=== PATIENT | female | born 1935 | race Caucasian/White ===

== ENCOUNTER 2021-05-17 13:43 | Emergency (ER) | payer MEDICARE, MEDICAID ==
[2021-05-17] MEDS ORDERED: Sodium Chloride 0.9% 10 ML Syringe FLUSH PRN (13:58)
--- NOTE | 2021-05-17 14:28 | CR ---
[id number] RAD/RAD Chest PA or AP 1V EXAM: FRONTAL CHEST INDICATION: CONFUSION. COMPARISON: None. DISCUSSION: There is mild cardiomegaly with early central vascular congestion and small bilateral pleural effusions. Superimposed left mid lung and basilar infiltrates are not excluded. Possible hiatus hernia. IMPRESSION: 1. Mild congestive heart failure. Ryan Lopez MD 05/17/21 [id number] Thank you for allowing us to participate in the care of your patient.
[2021-05-17 14:50] LABS: CHLORIDE,CL 98 mmol/L (98-107); SODIUM,NA 130 mmol/L (136-145)
[2021-05-17 14:53] LABS: ANION GAP 8.3 mmol/L (5-15)
--- NOTE | 2021-05-17 16:09 | EDM.PDOC ---
ED HPI GENERAL MEDICAL PROBLEM - General Stated Complaint: CONFUSION Time Seen by Provider: 05/17/21 13:53 Source of Information: Reports: Patient, RN - History of Present Illness INITIAL COMMENTS - FREE TEXT/NARRATIVE: Sr Marcos is an 85 y/o lady who [facility] with increased confusion and weakness. She just has not been herself and the nurse at the [facility] reports that she is much more confused and drowsy. Appetite is decreased. She did fall about a week ago and has a large bruise on her right hip. She also hit her head with that fall, but no imaging has been done. She was recently treated for a UTI and finished a course of Augmentin yesterday. - Related Data Allergies Allergy/AdvReac Type Severity Reaction Status Date / Time adhesive Allergy Cannot Verified 11/02/14 14:25 Remember ampicillin Allergy Cannot Verified 11/02/14 14:25 Remember codeine Allergy Cannot Verified 11/02/14 14:25 Remember fexofenadine HCl Allergy Cannot Verified 11/02/14 14:25 [From Stephanie] Remember latex Allergy Cannot Verified 11/02/14 14:25 Remember Sulfa (Sulfonamide Allergy Cannot Verified 11/02/14 14:25 Antibiotics) Remember Home Meds: Home Meds Acetaminophen [Tylenol Extra Strength] 1,000 mg PO TID PRN 10/13/14 [History] Calcium Carbonate/Vitamin D3 [Calcium 600 + Vit D 400] 1 each PO BID 10/13/14 [History] Divalproex Sodium [Depakote ER] 1,000 mg PO ACDIN 10/13/14 [History] Escitalopram [Lexapro] 15 mg PO DAILY 10/13/14 [History] Ferrous Sulfate 325 mg PO BID 10/13/14 [History] Furosemide 20 mg PO DAILY 10/13/14 [History] Lactase [Lactaid] 3 tab PO TIDM 10/13/14 [History] Multivitamin [Multi Vitamin Daily] 1 each PO DAILY 10/13/14 [History] Omeprazole 20 mg PO DAILY 10/13/14 [History] Psyllium with Sucrose [Metamucil] 1 each PO DAILY 10/13/14 [History] Aspirin [Halfprin] 81 mg PO DAILY 05/17/21 [History] Ibuprofen 200 mg PO Q12H PRN 05/17/21 [History] Losartan [Cozaar] 50 mg PO DAILY 05/17/21 [History] Sodium Chloride 1 gm PO TID 05/17/21 [History] Social & Family History - Living Situation & Occupation Living situation: Reports: Single, Assisted Living Occupation: Retired Review of Systems - Review of Systems Review Of Systems: See Below Constitutional: Reports: Weakness Eyes: Reports: No Symptoms Ears: Reports: No Symptoms Nose: Reports: No Symptoms Mouth/Throat: Reports: No Symptoms Respiratory: Reports: No Symptoms Cardiovascular: Reports: No Symptoms GI/Abdominal: Reports: Decreased Appetite Genitourinary: Reports: Incontinence (wears Depends has been having plenty voids it seems) Musculoskeletal: Reports: Other (Right Hip Bruise) Skin: Reports: No Symptoms Neurological: Reports: Confusion, Weakness Psychiatric: Reports: No Symptoms ED EXAM, GENERAL - Physical Exam Exam: See Below General Appearance: Alert, WD/WN, Other (Elderly female, she is a bit drowsy but will answer some questions before dozing off to sleep.) Eye Exam: Bilateral Eye: PERRL Ears: Normal External Exam, Normal Canal, Hearing Grossly Normal, Normal TMs Nose: Normal Inspection, Normal Mucosa Throat/Mouth: Normal Inspection, Normal Lips, Normal Voice Head: Atraumatic, Normocephalic Neck: Normal Inspection, Supple Respiratory/Chest: No Respiratory Distress, Lungs Clear, Chest Non-Tender Cardiovascular: Normal Peripheral Pulses, Regular Rate, Rhythm GI/Abdominal: Normal Bowel Sounds, Soft, Non-Tender (Female) Exam: Normal External Exam Rectal (Female) Exam: Deferred Back Exam: Normal Inspection Extremities: Normal Capillary Refill, Other (Note large brusie over right buttock region, fading into purple and yellow shades) Neurological: Alert, CN II-XII Intact, Confused (at times), Slow to Respond Skin Exam: Warm, Intact, Normal Color, No Rash, Other (Tacky) Lymphatic: No Adenopathy #1 Interpretation EKG Date: 05/17/21 Time: 16:19 Rhythm: NSR Rate (Beats/Min): 77 Sigurd: Normal P-Wave: Present QRS: Normal ST-T: Normal QT: Normal EKG Interpretation Comments: NSR Course - Vital Signs Text/Narrative:: 1353 The patient was seen by the [employer]PAR[employer]PERVIS[employer] FREE[employer]ING. Labs, CXR, and EKG ordered. 1530 Labs reviewed. CBC Xvs=968, Hct=30.0; CMP Bdqyll=473, Mg=1.5; CRP=<0.2. Xray ordered to assess bruising to right hip. CT Head WO ordered since she has been more confused after the fall a week ago and labs essentially negative other than the low sodium. Will also order a Troponin and EKG. 1730 Troponin neg and EKG normal. CT negative and Xray of the right hip negative. Case discussed with Dr Pal for consideration of Observation or SB admission. Dr Pal did not feel that she would participate in therapy to get any benefit from it. Will place on on a fluid restriction for the low sodium for home. Discussed the plan of care with the Rafael NICOLE and who [facility] She will have 21/05 nursing care there. She has repeat labs ordered for Sunday. Written instructions were given and the patient [facility] to the [facility]. She left in stable condition. Last Recorded V/S: Last Vital Signs Temp 36.7 C 05/17/21 13:45 Pulse 82 05/17/21 13:45 Resp 18 05/17/21 13:45 BP 163/80 H 05/17/21 13:45 Pulse Ox 94 L 05/17/21 13:45 - Orders/Labs/Meds Orders: Active Orders 24 hr Category Date Time Status EKG Documentation Completion [RC] STAT Care 05/17/21 16:16 Active CULTURE BLOOD [BC] Stat Lab 05/17/21 14:16 Received CULTURE BLOOD [BC] Stat Lab 05/17/21 14:26 Results Sodium Chloride 0.9% [Saline Flush] Med 05/17/21 13:58 Active 10 ml FLUSH ASDIRECTED PRN Blood Culture x2 Reflex Set [OM.PC] Stat Oth 05/17/21 13:57 Ordered Blood Culture x2 Reflex Set [OM.PC] Stat Oth 05/17/21 13:59 Ordered Saline Lock Insert [OM.PC] Stat Oth 05/17/21 13:57 Ordered Medication Orders Sodium Chloride (Sodium Chloride 0.9% 10 Ml Syringe) 10 ml FLUSH ASDIRECTED PRN PRN Reason: Keep Vein Open Labs: Laboratory Tests 05/17/21 05/17/21 05/17/21 Range/Units 14:16 14:16 14:16 WBC 5.4 (4.0-10.0) x10^3/uL RBC 3.14 L (4.00-5.50) x10^6/uL Hgb 10.2 L (12.0-16.0) g/dL Hct 30.0 L (33.0-47.0) % MCV 95.5 H (78.0-93.0) fL MCH 32.5 H (26.0-32.0) pg MCHC 34.0 (32.0-36.0) g/dL RDW Coeff of Luly 12.5 (10.0-15.0) % Plt Count 290 D (130-400) x10^3/uL Neut % (Auto) 63.7 (50.0-80.0) % Lymph % (Auto) 24.4 L (25.0-50.0) % Crittenden % (Auto) 8.3 (2.0-11.0) % Eos % (Auto) 2.9 (0.0-4.0) % Baso % (Auto) 0.7 (0.2-1.2) % Sodium 130 L (136-145) mmol/L Potassium 4.3 (3.5-5.1) mmol/L Chloride 98 (98-107) mmol/L Carbon Dioxide 28 (21-32) mmol/L Anion Gap 8.3 (5-15) mmol/L BUN 16 D (7-18) mg/dL Creatinine 1.0 D (0.55-1.02) mg/dL Est Cr Clr Drug Dosing TNP Estimated GFR (MDRD) 53 Glucose 97 (70-99) mg/dL Lactic Acid 0.6 (0.4-2.0) mmol/L Calcium 8.8 (8.5-10.1) mg/dL Corrected Calcium 9.8 (8.5-10.1) mg/dL Magnesium 1.5 L (1.8-2.4) mg/dL Total Bilirubin 0.3 (0.2-1.0) mg/dL AST 16 (15-37) U/L ALT 14 (14-59) U/L Alkaline Phosphatase 50 (46-116) U/L Troponin I High Sens (<=51) ng/L C-Reactive Protein < 0.2 (<=0.9) mg/dL Total Protein 6.4 (6.4-8.2) g/dL Albumin 2.8 L (3.4-5.0) g/dL Globulin 3.6 Albumin/Globulin Ratio 0.78 Urine Color (YELLOW) Urine Appearance (CLEAR) Urine pH (5.0-8.0) Ur Specific Roll[place] Urine Protein (NEGATIVE) mg/dL Urine Glucose (UA) (NEGATIVE) mg/dL Urine Ketones (NEGATIVE) mg/dL Urine Occult Blood (NEGATIVE) Urine Nitrite (NEGATIVE) Urine Bilirubin (NEGATIVE) Urine Urobilinogen (0.2) EU/dL Ur Leukocyte Esterase (NEGATIVE) Urine RBC (NOT SEEN) /HPF Urine WBC (NOT SEEN) /HPF Ur Squamous Epith Cells (NOT SEEN) /HPF Urine Bacteria (NOT SEEN) /HPF Urine Mucus (NOT SEEN) /LPF 05/17/21 05/17/21 Range/Units 14:16 14:48 WBC (4.0-10.0) x10^3/uL RBC (4.00-5.50) x10^6/uL Hgb (12.0-16.0) g/dL Hct (33.0-47.0) % MCV (78.0-93.0) fL MCH (26.0-32.0) pg MCHC (32.0-36.0) g/dL RDW Coeff of Luly (10.0-15.0) % Plt Count (130-400) x10^3/uL Neut % (Auto) (50.0-80.0) % Lymph % (Auto) (25.0-50.0) % Crittenden % (Auto) (2.0-11.0) % Eos % (Auto) (0.0-4.0) % Baso % (Auto) (0.2-1.2) % Sodium (136-145) mmol/L Potassium (3.5-5.1) mmol/L Chloride (98-107) mmol/L Carbon Dioxide (21-32) mmol/L Anion Gap (5-15) mmol/L BUN (7-18) mg/dL Creatinine (0.55-1.02) mg/dL Est Cr Clr Drug Dosing Estimated GFR (MDRD) Glucose (70-99) mg/dL Lactic Acid (0.4-2.0) mmol/L Calcium (8.5-10.1) mg/dL Corrected Calcium (8.5-10.1) mg/dL Magnesium (1.8-2.4) mg/dL Total Bilirubin (0.2-1.0) mg/dL AST (15-37) U/L ALT (14-59) U/L Alkaline Phosphatase (46-116) U/L Troponin I High Sens 19 (<=51) ng/L C-Reactive Protein (<=0.9) mg/dL Total Protein (6.4-8.2) g/dL Albumin (3.4-5.0) g/dL Globulin Albumin/Globulin Ratio Urine Color Yellow (YELLOW) Urine Appearance Clear (CLEAR) Urine pH 7.0 (5.0-8.0) Ur Specific Rolla 1.020 Urine Protein 30 H (NEGATIVE) mg/dL Urine Glucose (UA) Negative (NEGATIVE) mg/dL Urine Ketones Negative (NEGATIVE) mg/dL Urine Occult Blood Negative (NEGATIVE) Urine Nitrite Negative (NEGATIVE) Urine Bilirubin Negative (NEGATIVE) Urine Urobilinogen 0.2 (0.2) EU/dL Ur Leukocyte Esterase Negative (NEGATIVE) Urine RBC 0-5 (NOT SEEN) /HPF Urine WBC 0-5 (NOT SEEN) /HPF Ur Squamous Epith Cells Rare (NOT SEEN) /HPF Urine Bacteria Not seen (NOT SEEN) /HPF Urine Mucus Not seen (NOT SEEN) /LPF Meds: Medications Generic Name Dose Route Start Last Admin Trade Name Freq PRN Reason Stop Dose Admin Sodium Chloride 10 ml 05/17/21 13:58 Sodium Chloride 0.9% 10 Ml Syringe FLUSH ASDIRECTED PRN Keep Vein Open - Radiology Interpretation Free Text/Narrative:: XR Chest 1V= mild CHF XR Right Hip/Pelvis=no acute findings CT Head WO=negative (See final report) Departure - Departure Time of Disposition: 17:46 Disposition: Home, Self-Care 01 Condition: Good Clinical Impression: Hyponatremia, Confusion, General physical deterioration, Advanced age - Discharge Information Instructions: Hyponatremia, [id number] Referrals: Idania Pal DO [Primary Care Provider] - Additional Instructions: -Nursing cares as needed -Place on 1500ml fluid restriction -Continue [id number] po 3x daily -Labs as ordered previously on Sunday -Follow up with PCP for further concerns or return to the ER Sepsis Event Note (ED) - Focused Exam Vital Signs: Vital Signs Temp Pulse Resp BP Pulse Ox 05/17/21 13:45 36.7 C 82 18 163/80 H 94 L - My Orders Last 24 Hours: My Active Orders 05/17/21 13:57 Blood Culture x2 Reflex Set [OM.PC] Stat Saline Lock Insert [OM.PC] Stat 05/17/21 13:58 Sodium Chloride 0.9% [Saline Flush] 10 ml FLUSH ASDIRECTED PRN 05/17/21 13:59 Blood Culture x2 Reflex Set [OM.PC] Stat 05/17/21 14:16 CULTURE BLOOD [BC] Stat 05/17/21 14:26 CULTURE BLOOD [BC] Stat 05/17/21 16:16 EKG Documentation Completion [RC] STAT - Assessment/Plan Last 24 Hours: My Active Orders 05/17/21 13:57 Blood Culture x2 Reflex Set [OM.PC] Stat Saline Lock Insert [OM.PC] Stat 05/17/21 13:58 Sodium Chloride 0.9% [Saline Flush] 10 ml FLUSH ASDIRECTED PRN 05/17/21 13:59 Blood Culture x2 Reflex Set [OM.PC] Stat 05/17/21 14:16 CULTURE BLOOD [BC] Stat 05/17/21 14:26 CULTURE BLOOD [BC] Stat 05/17/21 16:16 EKG Documentation Completion [RC] STAT Assessment:: 1)Hyponatremia 2)Confusion 3)General Deterioration in Condition 4)Advanced Age Plan: -Discharge back to [facility]
--- NOTE | 2021-05-17 17:22 | CR ---
[id number] RAD/RAD Pelvis 1V W 2V Right Hip Exam: RAD Pelvis 1V W 2V Right Hip Indication:FELL A WEEK AGO,RIGHT HIP BRUISED. Comparison: MRI from 2018. Discussion/Impression: No acute fracture or dislocation. No AVN or erosive changes. Bilateral femoroacetabular osteoarthritis. Larry Vargas MD 05/17/21 [id number] Thank you for allowing us to participate in the care of your patient.
--- NOTE | 2021-05-17 17:32 | CT ---
[id number] CT/CT Head WO IV EXAM: CT Head WO IV CLINICAL DATA: FALL A WEEK AGO,CONFUSED. COMPARISON STUDY: None FINDINGS: No intracranial hemorrhage, extra-axial fluid collection, mass, or acute ischemia. No hydrocephalus. Bilateral symmetric parenchymal atrophy and white matter hypodensity. Findings are nonspecific but commonly seen as sequela of chronic small vessel disease. Calvarium intact. Paranasal sinuses and mastoid air cells are clear. IMPRESSION: No acute intracranial findings. Larry Vargas MD 05/17/21 [id number] Thank you for allowing us to participate in the care of your patient.
[2021-05-17 18:27] VITALS: PULSE 75
[2021-05-17 18:31] VITALS: BP 130/80
== END 2021-05-17 17:54 | disposition home or self-care (01) ==
LOC: VM.ED 13:43
DX: R41.0 Disorientation, unspecified (principal); E87.1 Hypo-osmolality and hyponatremia; Z88.5 Allergy status to narcotic agent; Z88.1 Allergy status to other antibiotic agents; Z91.040 Latex allergy status; Z91.048 Other nonmedicinal substance allergy status; Z88.2 Allergy status to sulfonamides; Z79.82 Long term (current) use of aspirin; Z79.899 Other long term (current) drug therapy
CPT/HCPCS: 36415; 70450; 71045; 80053; 81001; 83605; 83735; 84484; 85025; 86140; 87040; 93005; 93010; 99284; 99285-25